=== PATIENT | male | born 1950 | race Caucasian/White ===

== ENCOUNTER 2018-11-11 09:32 | Emergency (ER) | payer OTHER ==
[~2018-11-11] VITALS: Ht 185.4 cm; Wt 122.5 kg
[2018-11-11 09:32] VITALS: BP 164/96
[~2018-11-11 09:32] MED LIST: ACETAMINOPHEN325 M1 PO; B-12500 MCG PO; BENADRYL25 MG PO; CARAFATE 1 GM TA1 G1 PO; CARVEDILOL6.25 MG PO; CLOPIDOGREL75 MG PO; COLACE 100 MG100 MG PO; COUMADIN 5 MG TA5 M1 PO; ELEMENTAL CALC600 MG PO; EPIPEN0.3 MG/0.3 IM; GOLD BOND BODY226 GM TOP; HYDROCODON-ACE1 EAC7 PO; JANTOVEN6 MG PO; LIPITOR40 MG PO; LOSARTAN POTASS50 MG PO; MULTI-DAY PLUS1 EACH PO; NORCO 5-325 TA1 EACH PO; PREDNISONE 20 M20 M1 PO; PROTONIX40 M2 PO; TAMSULOSIN HCL0.4 M1 PO; TUMS E.S.750 MG PO; TUMS PO
[2018-11-11 10:41] LABS: ABSOLUTE NEUTROPHILS 5.2 thou/uL (1.4-8.2); BASOPHILS 0.8 % (0.0-2.0); EOSINOPHILS 2.2 % (0.0-3.0); HEMATOCRIT 45.1 % (42.0-52.0); HEMOGLOBIN 15.6 gm/dL (14.0-18.0); LYMPHOCYTES 20.6 % (24.0-44.0); MCH 28.4 pg (26.0-34.0); MCHC 34.7 g/dL (28.0-37.0); MCV 81.7 fL (80.0-100.0); MONOCYTES 7.4 % (1.0-8.0); PLATELET COUNT 287 thou/uL (150-400); RBC 5.51 mil/uL (4.50-6.00); RDW 15.3 % (10.5-14.5); WBC 7.5 thou/uL (4.0-11.0)
[2018-11-11 10:50] LABS: CALCIUM 9.2 mg/dL (8.5-10.1)
[2018-11-11 10:56] LABS: ALBUMIN 3.6 g/dL (3.4-5.0); TOTAL BILIRUBIN 0.6 mg/dL (<0.1-1.0); TOTAL PROTEIN 7.5 g/dL (6.4-8.2)
[2018-11-11] MEDS ORDERED: OXYCODONE HCL20 M1 PO (11:29)
[2018-11-11 11:54] LABS: URINE BILIRUBIN NEGATIVE (Negative); URINE BLOOD 1+ (Negative); URINE CLARITY CLEAR; URINE COLOR YELLOW; URINE GLUCOSE-RANDOM* 2+ (Negative); URINE KETONES NEGATIVE (Negative); URINE LEUKOCYTES-REFLEX NEGATIVE (Negative); URINE NITRITE-REFLEX NEGATIVE (Negative); URINE PROTEIN (DIPSTICK) 1+ (Negative); URINE SPECIFIC GRAVITY 1.015 (1.005-1.035); URINE UROBILINOGEN 0.2 E.U./dl (0.2-1.0)
[2018-11-11 12:11] LABS: CASTS None Seen /LPF (None Seen); SQUAMOUS 0-3 Few /LPF (0-3)
[2018-11-11 12:12] LABS: BACTERIA-REFLEX None Seen /HPF (None Seen); CRYSTALS None Seen /LPF (None Seen); URINE RBC 0-2 Rare /HPF (0-2); URINE WBC-REFLEX 0-5 Rare /HPF (0-5)
[2018-11-11] MEDS ORDERED: COUMADIN 2 MG TA2 M1 PO (13:29)
[2018-11-11] MEDS ORDERED: GLUCOPHAGE1000 MG PO (13:33)
[2018-11-11] MEDS ORDERED: SPIRONOLACTONE25 MG PO (13:34)
[2018-11-11] MEDS ORDERED: FERROUS SULFAT325 MG PO (13:35)
[2018-11-11 13:44] LABS: INR 3.2; PROTIME 33.2 Seconds (9.3-11.4)
[2018-11-11 14:05] VITALS: BP 171/82
[2018-11-11 14:12] LABS: TSH 1.032 uIU/mL (0.358-3.740)
[2018-11-12 00:11] LABS: GLYCOHEMOGLOBIN (HGB A1C) 10.7 % (4.8-5.6)
--- NOTE | 2018-11-12 09:21 | EKG ---
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 11/12/18 0921 [id number] Connor Tucker MD, FACC /EPI
== END 2018-11-11 14:06 | disposition still patient (30) ==
LOC: ER 09:32 → EROBS 12:54
PROVIDERS: Emergency Medicine; Internal Medicine
DX: E11.622 Type 2 diabetes mellitus with other skin ulcer (principal); L97.228 Non-pressure chronic ulcer of left calf with other specified severity; I10 Essential (primary) hypertension; E11.9 Type 2 diabetes mellitus without complications; E66.9 Obesity, unspecified; G47.30 Sleep apnea, unspecified; E11.40 Type 2 diabetes mellitus with diabetic neuropathy, unspecified; Z68.35 Body mass index [BMI] 35.0-35.9, adult; Z77.22 Contact with and (suspected) exposure to environmental tobacco smoke (acute) (chronic); Z88.0 Allergy status to penicillin; Z88.6 Allergy status to analgesic agent; Z88.8 Allergy status to other drugs, medicaments and biological substances; Z95.5 Presence of coronary angioplasty implant and graft

== ENCOUNTER → 2018-11-18 | Outpatient (CLI) | payer OTHER ==
[~2018-11-18] MED LIST changes: +COUMADIN 2 MG TA2 M1 PO; +FERROUS SULFAT325 MG PO; +GLUCOPHAGE1000 MG PO; +OXYCODONE HCL20 M1 PO; +SPIRONOLACTONE25 MG PO
== END ==
LOC: HYPER 11-11 13:56
DX: E11.622 Type 2 diabetes mellitus with other skin ulcer (principal); I87.312 Chronic venous hypertension (idiopathic) with ulcer of left lower extremity; L97.822 Non-pressure chronic ulcer of other part of left lower leg with fat layer exposed; E11.40 Type 2 diabetes mellitus with diabetic neuropathy, unspecified; E66.01 Morbid (severe) obesity due to excess calories; G47.30 Sleep apnea, unspecified; I10 Essential (primary) hypertension; F17.200 Nicotine dependence, unspecified, uncomplicated; Z95.5 Presence of coronary angioplasty implant and graft; Z68.34 Body mass index [BMI] 34.0-34.9, adult; Z79.01 Long term (current) use of anticoagulants; Z79.84 Long term (current) use of oral hypoglycemic drugs

== ENCOUNTER → 2018-11-24 | Outpatient (CLI) | payer OTHER | LOC: HYPER 07:24 | DX: E11.622 Type 2 diabetes mellitus with other skin ulcer (principal); L97.822 Non-pressure chronic ulcer of other part of left lower leg with fat layer exposed; E11.40 Type 2 diabetes mellitus with diabetic neuropathy, unspecified; E66.01 Morbid (severe) obesity due to excess calories; I87.2 Venous insufficiency (chronic) (peripheral); I10 Essential (primary) hypertension; G47.30 Sleep apnea, unspecified; F17.200 Nicotine dependence, unspecified, uncomplicated; Z79.01 Long term (current) use of anticoagulants; Z79.84 Long term (current) use of oral hypoglycemic drugs ==

== ENCOUNTER 2018-11-30 14:41 | Inpatient (IN) | payer OTHER ==
[2018-11-30] VITALS (7 sets, daily range): BP systolic 117–151; BP diastolic 53–84
[~2018-11-30] VITALS: Ht 188 cm; Wt 127.5 kg
[2018-11-30] MEDS ORDERED: NEURONTIN600 MG PO (16:07)
[2018-11-30 16:13] LABS: ABSOLUTE NEUTROPHILS 3.8 thou/uL (1.4-8.2); BASOPHILS 0.4 % (0.0-2.0); EOSINOPHILS 2.9 % (0.0-3.0); HEMATOCRIT 40.4 % (42.0-52.0); HEMOGLOBIN 13.9 gm/dL (14.0-18.0); LYMPHOCYTES 24.2 % (24.0-44.0); MCHC 34.4 g/dL (28.0-37.0); MCV 84.1 fL (80.0-100.0); MONOCYTES 7.5 % (1.0-8.0); PLATELET COUNT 203 thou/uL (150-400); RDW 16.8 % (10.5-14.5); WBC 5.8 thou/uL (4.0-11.0)
[2018-11-30 16:21] LABS: CALCIUM 9.2 mg/dL (8.5-10.1); POTASSIUM 4.3 mmol/L (3.5-5.1)
[2018-11-30 16:31] LABS: INR 3.7; PROTIME 38.7 Seconds (9.3-11.4)
--- NOTE | 2018-11-30 19:08 | NUR ---
1830 - PT TO BED 237 - VSS - DR. CASILLAS UPDATED ON PT ARRIVAL
[2018-12-01] VITALS (8 sets, daily range): BP systolic 100–136; BP diastolic 52–80
[2018-12-01 04:31] LABS: CREATININE 0.9 mg/dL (0.7-1.3); MAGNESIUM 1.4 mg/dL (1.8-2.4); POTASSIUM 4.6 mmol/L (3.5-5.1)
[2018-12-01 04:33] LABS: INR 2.5; PROTIME 26.3 Seconds (9.3-11.4)
[2018-12-01 04:36] LABS: HEMOGLOBIN 13.2 gm/dL (14.0-18.0); MCH 28.6 pg (26.0-34.0); MCHC 33.9 g/dL (28.0-37.0); MCV 84.2 fL (80.0-100.0); RBC 4.63 mil/uL (4.50-6.00); RDW 16.6 % (10.5-14.5)
--- NOTE | 2018-12-01 13:10 | NUR ---
WOUND CONSULT; ROUNDING WITH DR PETR GUPTA. ASSESSMENT TO THE LEFT LE; CALF WOUND HAS 50% FIBRNOUS NON VIABLE TISSUE. THE PATIENT HAS HAD ONE DOSE OF VANCOMYCIN AND WILL RECIEVE ANOTHER BEFOR DISCHARGE. NO OTHER CONCERNS. RECOMMENDATION; COVER THE WOUND WITH XEROFORM ABD AND SIMPLE COMPRESSION WITH TREASURE WRAP FIGURE 8 PATERN BASE OF TOES TO ABOVE THE CALF DAILY/PRN. DISCUSSED WITH REYES
--- NOTE | 2018-12-01 13:20 | NUR ---
INITIAL ASSESSMENT: Received consult for discharge planning. PETE reviewed chart and spoke with nursing and attending physician. Pt was admitted from home due to LLE wound. Pt normally sees Dr. Chow at [facility] for wound care. PETE met with pt and sister at bedside. Introduced role of SW. Pt is alert/orientated x 4. Pt reports he lives at home alone. Prior to admission, pt was not using any DME. Pt currently has HH services provided by [facility]. Pt's PCP is Dr. Kalpesh Rodriguez in [place]. Pt states his plan is to return home and resume HH services. PETE faxed clinical info to [facility] and spoke with Chrissy in intake to notify of pt's hospitalization. Chrissy confirms they will resume HH services when pt is discharged. PETE is following to assist as needed with discharge planning.
--- NOTE | 2018-12-01 14:49 | NUR ---
Pt admitted for LLE diabetic ulcer. Seen for nutritional risk related to wound. Past hx of type II DM, gastric bypass. Pertinant medications include ferrous sulfate, lispro, diuretics. BG 175-188, A1c 10.7. BMI of 37. Pt ate 100% of breakfast and lunch today. Will order Eric BID to promote wound healing. Pt was sleeping, will f/u 12/02/18 to obtain wt and appetite hx, education needs. Considered low risk at this time.
--- NOTE | 2018-12-01 17:24 | NUR ---
RECEIVED PT FROM ICU. PT ALERT/ORIENTED X4. REPORTS DECREASED PAIN AFTER OXYCODONE RATED 7/10 NOW. LEFT LEG WRAPPED, CDI. ORIENTED PT TO ROOM AND SETTLED IN WITH DINNER. WILL CONTINUE WITH CURRENT CARE.
--- NOTE | 2018-12-02 03:21 | NUR ---
Patient remains A&Ox4; Swallows meds whole w/o difficulty. Remains cont. B*B. Ambulates independently w/ steady gait. Blood sugars WNL. Remains on IVABT/Ulcer to LLE; no adverse reactions noted. SL noted to L hand; infused ABT/flushed w/o difficulty. DRSG to LLE remains C/D/I, at this time. Patient remains on coumadin therapy; no s/s of bleeding noted. Last BM 11/30/18, per patient/report. Patient remains non - compliant w/ elevating BLEs. Patient has no c/o pain or discomfort. No s/s of acute distress noted. Patient up to recliner chair w/ Call light/desired belongings within reach. PO fluids encouraged. Will continue to monitor.
[2018-12-02 05:49] LABS: HEMATOCRIT 40.5 % (42.0-52.0); MCH 27.2 pg (26.0-34.0); MCV 84.7 fL (80.0-100.0); RBC 4.78 mil/uL (4.50-6.00); RDW 16.9 % (10.5-14.5); WBC 5.5 thou/uL (4.0-11.0)
[2018-12-02 05:59] LABS: CALCIUM 8.6 mg/dL (8.5-10.1); CREATININE 1.1 mg/dL (0.7-1.3); MAGNESIUM 1.4 mg/dL (1.8-2.4); POTASSIUM 3.7 mmol/L (3.5-5.1)
[2018-12-02 06:05] LABS: INR 1.7
[2018-12-02 08:16] VITALS: BP 131/71
--- NOTE | 2018-12-02 10:29 | NUR ---
SW reviewed chart and spoke with nursing. Pt was transferred to [facility] from ICU. Pt remains on IV abx and IV lasix. Plan is for pt to discharge home and resume HH services with [facility] when medically stable. PETE is following to assist as needed with discharge planning.
[2018-12-02 13:25] VITALS: BP 131/71
[2018-12-02 17:14] VITALS: BP 127/63
--- NOTE | 2018-12-02 17:18 | NUR ---
WOUND FOLLOW UP: PT. WAS SEEN TODAY BY DR. BUCK AND MYSELF. PT. WOUND IS CLINICALLY BETTER TODAY. RECOMMENDATIONS: CONTINUE WITH CURRENT PLAN OF CARE. PT. AND STAFF NURSE WERE INSTRUCTED ON PLAN OF CARE.
--- NOTE | 2018-12-02 19:58 | NUR ---
ASSUMED CARE OF PATIENT AT 0715, PATIENT ALERT AND ORIENTED X 4. PATIENT UP AD BLANCA IN HIS ROOM. PATIENT HAS WOUNDS TO LEFT LOWER LEG. WOUND CARE DONE BY THIS RN. PHYSICAL THERAPY DID TREATMENT TO LEFT LEG. PATIENT C/O PAIN WITH BILATERAL LEGS/FEET. FENTANYL IV AND OXYCODONE GIVEN X 2 THIS SHIFT. PATIENT HAS LEFT FOREARM IV IN PLACE, RECEIVED IV ANTIBIOTIC, AND 1 TIME DOSE OF MAGNESIUM IVPB THIS SHIFT. LABS IN AM. WILL CONTINUE TO MONITOR.
[2018-12-02 22:10] VITALS: BP 114/60
--- NOTE | 2018-12-03 05:55 | NUR ---
Pt A/OX4,VSS. Up ad rafaela without any problems.Pleasant mood. Dsg in place on LLE,edema noted on BLE states it's been on going encouraged to keep BLE elevated since pt spends a lot of time on the chair. C/o pain to BLE/feet 04/14 medicated with Oxycodone 20mg with partial relief reported. Miralax given at HS per request no BM yet but passing flatus. Requested for coffee to facilitate BM 2 cups of coffee given.Resting quietly at this time on the chair with feet elevated. Call light/personal items within reach. Will continue to monitor pt.
[2018-12-03 07:01] LABS: HEMATOCRIT 40.8 % (42.0-52.0); HEMOGLOBIN 13.4 gm/dL (14.0-18.0); MCH 28.1 pg (26.0-34.0); MCHC 32.9 g/dL (28.0-37.0); MCV 85.3 fL (80.0-100.0); RBC 4.79 mil/uL (4.50-6.00); RDW 17.2 % (10.5-14.5); WBC 5.1 thou/uL (4.0-11.0)
[2018-12-03 07:05] LABS: CALCIUM 8.8 mg/dL (8.5-10.1); CREATININE 1.1 mg/dL (0.7-1.3); INR 1.7; MAGNESIUM 1.4 mg/dL (1.8-2.4); POTASSIUM 3.7 mmol/L (3.5-5.1); PROTIME 18.1 Seconds (9.3-11.4)
[2018-12-03 07:39] VITALS: BP 119/64
[2018-12-03 10:04] VITALS: BP 119/64
--- NOTE | 2018-12-03 10:16 | HC ---
[facility] [place] [address] CONSULTATION Name: EMANUEL SHAW Room #: 226-P ADM IN M.R.#: [id number] Admission: 11/30/18 ������������������ Attend Phys: Tello Alatorre MD Discharge: ������������������ Date of : 52 Report #: [id number] THIS REPORT FOR: //name// CC: Tello WISE PCP DATE OF SERVICE: 12/01/2018 CHIEF COMPLAINT: Venous type ulceration, left lower extremity. HISTORY OF PRESENT ILLNESS: This is a 67-year-old male patient with whom I am familiar from previous evaluation in the Wound Care Clinic. He was presented to the Emergency Department with increasing pain, drainage and odor from his left leg. He was admitted to the hospital and started empirically on antibiotic therapy. I have been asked to see him with regard to wound care. The patient does complain of pain and drainage from his wound. The patient has had some noncompliance with dressings and home health has been ordered. ALLERGIES: Include PENICILLIN, ASPIRIN, and LOSARTAN. MEDICATIONS: Include Lipitor, Coreg, fentanyl, ferrous sulfate, Lasix, gabapentin, glucagon, glucose, oxycodone, Protonix, tamsulosin, vancomycin and Coumadin. PAST MEDICAL HISTORY: Significant for previous bariatric surgery; hypertension; diabetes mellitus; obesity; sleep apnea; lower extremity DVT, status post placement of IVC filter; aortic aneurysm; neuropathy. SOCIAL HISTORY: Positive for current smoking cigarettes. Denies alcohol use. FAMILY HISTORY: Noncontributory. REVIEW OF SYSTEMS: CONSTITUTIONAL: The patient denies fever, chills or weight loss. NEUROLOGICAL: The patient denies focal weakness, numbness, tingling. EYES: The patient denies visual changes, redness or drainage. ENT: The patient denies earache, nasal drainage, sore throat. CARDIOVASCULAR: The patient denies chest pain, palpitation or diaphoresis. PULMONARY: The patient denies cough or shortness of breath. GASTROINTESTINAL: The patient denies nausea, vomiting or abdominal pain. ORTHOPEDIC: The patient does complain of pain, swelling and drainage from his left lower extremity. Other systems in a 14-point review of systems are negative. PHYSICAL EXAMINATION: VITAL SIGNS: At this time include temperature 98.1, pulse 90, respiration 16, [address] [address] CONSULTATION Name: EMANUEL SHAW DAR Room #: 226-[facility] IN M.R.#: [id number] Admission: 11/30/18 ������������������ Attend Phys: Tello Alatorre MD Discharge: ������������������ Date of : 52 Report #: [id number] blood pressure 101/54. GENERAL: This is a chronically ill-appearing male patient who appears to be in minimal distress. HEENT: Head normocephalic. Nose and throat are clear. NECK: Supple. LUNGS: Clear. HEART: S1 and S2. ABDOMEN: Soft. Bowel sounds present. EXTREMITIES: Demonstrate a large venous type ulceration to the left posterior lateral lower leg. There is moderate drainage with some odor. Moderate fibrin and some yellow material present on the surface. There is significant venous stasis dermatitis bilaterally, greater on the left than on the right. Pulses are palpable. NEUROLOGIC: The patient is alert, oriented and appropriate. LABORATORY DATA: Includes sodium 138, potassium 4.3, chloride 101, CO2 28, BUN 15, creatinine 1.0. Glucose 183. INR is 1.7. White blood cell count is 5.5 with hemoglobin of 13.0. CLINICAL IMPRESSION: 1. Venous ulceration of the left lower extremity. 2. Wound infection. 3. Volume overload. 4. Venous stasis dermatitis. 5. Diabetes mellitus. 6. Obesity. RECOMMENDATIONS: At this point in time, we recommend empiric antibiotic therapy. Culture and sensitivity have been obtained. We will adjust antibiotic therapy pending culture and sensitivity results. Recommend elevation of the lower extremities, diuresis, empiric antibiotic therapy. Continue current medications. We will dress him with Xeroform gauze and a multilayer compression bandage to control edema. I appreciate being asked to see him in consultation. ��������������������������������������������� <ELECTRONICALLY SIGNED> ���������������������������������������� By: Jose Martin Pinzon MD ��������������������������������������������� 12/03/18 1016 [id number] Jose Martin Pinzon MD /nt
--- NOTE | 2018-12-03 10:30 | NUR ---
DISCHARGE NOTE: SW reviewed chart and spoke with nursing. Discharge home is anticipated later today following wound care visit. SW met with pt at bedside to discuss discharge plan. Pt is agreeable with resuming HH services with [facility]. Pt states he will be driving himself home. Final discharge orders and summary will need to be faxed to [facility] when available. Contact info for [facility] placed in pt's discharge summary. No additional SW needs identified at this time, but is available to assist should needs arise.
--- NOTE | 2018-12-03 14:54 | NUR ---
ASSUMED CARE OF PATIENT AT 0715, PATIENT ALERT AND ORIENTED X 4, PATIENT UP AD BLANCA. PATIENT C/O PAIN WITH BILATERAL LEGS/FEET. PATIENT RECEIVED OXYCODONE 20 MG X 1 THIS SHIFT. WOUND CARE DONE TO LEFT LEG, PER WOUND TEAM/HUGO. WOUND CARE RELEASED PATIENT FOR DISCHARGE. JUST SPOKE WITH DR GONZALEZ WHO WAS UNAWARE PATIENT WAS DISCHARGING. PATIENT VERY UPSET AND READY TO GO HOME. DR De Leon WILL DISCHARGE PATIENT. WILL REMOVE LEFT FOEARM IV PRIOR TO DISCHARGE. WILL CONTINUE TO MONITOR.
== END 2018-12-03 16:03 | disposition home health service (06) | DRG 853 ==
LOC: ER 14:41 → ICU 16:59 → EROBS 16:59 → ICU 18:32 → ENTRNSPT 12-01 16:10 → SICU 12-01 16:29
PROVIDERS: Nurse Practitioner Family; ADMIT Internal Medicine
PROC: 0KDT0ZZ Extraction of Left Lower Leg Muscle, Open Approach (ICD-10-PCS; principal; 2018-11-30)
DX: A41.9 Sepsis, unspecified organism (principal); E43 Unspecified severe protein-calorie malnutrition; L97.829 Non-pressure chronic ulcer of other part of left lower leg with unspecified severity; E66.9 Obesity, unspecified; E11.40 Type 2 diabetes mellitus with diabetic neuropathy, unspecified; L08.9 Local infection of the skin and subcutaneous tissue, unspecified; F17.210 Nicotine dependence, cigarettes, uncomplicated; E87.70 Fluid overload, unspecified; I11.0 Hypertensive heart disease with heart failure; I87.2 Venous insufficiency (chronic) (peripheral); I50.9 Heart failure, unspecified; N40.0 Benign prostatic hyperplasia without lower urinary tract symptoms; E11.65 Type 2 diabetes mellitus with hyperglycemia; Z98.84 Bariatric surgery status; Z68.36 Body mass index [BMI] 36.0-36.9, adult; Z88.6 Allergy status to analgesic agent; Z88.0 Allergy status to penicillin; Z88.8 Allergy status to other drugs, medicaments and biological substances; Z86.718 Personal history of other venous thrombosis and embolism; Z95.828 Presence of other vascular implants and grafts
CPT/HCPCS: 10196; 15002

== ENCOUNTER → 2018-12-10 | Outpatient (CLI) | payer OTHER ==
[~2018-12-10] MED LIST changes: +NEURONTIN600 MG PO
== END ==
LOC: HYPER 12-02 15:18
DX: E11.622 Type 2 diabetes mellitus with other skin ulcer (principal); L97.822 Non-pressure chronic ulcer of other part of left lower leg with fat layer exposed; E11.40 Type 2 diabetes mellitus with diabetic neuropathy, unspecified; E66.01 Morbid (severe) obesity due to excess calories; G47.30 Sleep apnea, unspecified; I87.2 Venous insufficiency (chronic) (peripheral); I10 Essential (primary) hypertension; F17.200 Nicotine dependence, unspecified, uncomplicated; Z79.01 Long term (current) use of anticoagulants; Z79.84 Long term (current) use of oral hypoglycemic drugs; Z68.34 Body mass index [BMI] 34.0-34.9, adult

== ENCOUNTER → 2018-12-17 | Outpatient (CLI) | payer OTHER | LOC: HYPER 06:58 | DX: E11.622 Type 2 diabetes mellitus with other skin ulcer (principal); L97.822 Non-pressure chronic ulcer of other part of left lower leg with fat layer exposed; I87.2 Venous insufficiency (chronic) (peripheral); E11.40 Type 2 diabetes mellitus with diabetic neuropathy, unspecified; E66.01 Morbid (severe) obesity due to excess calories; I10 Essential (primary) hypertension; G47.30 Sleep apnea, unspecified; F17.200 Nicotine dependence, unspecified, uncomplicated; Z79.01 Long term (current) use of anticoagulants; Z79.84 Long term (current) use of oral hypoglycemic drugs; Z68.34 Body mass index [BMI] 34.0-34.9, adult ==

== ENCOUNTER → 2018-12-24 | Outpatient (CLI) | payer OTHER | LOC: HYPER 06:57 | DX: E11.622 Type 2 diabetes mellitus with other skin ulcer (principal); L97.822 Non-pressure chronic ulcer of other part of left lower leg with fat layer exposed; E11.40 Type 2 diabetes mellitus with diabetic neuropathy, unspecified; E66.01 Morbid (severe) obesity due to excess calories; E66.9 Obesity, unspecified; G47.30 Sleep apnea, unspecified; I87.2 Venous insufficiency (chronic) (peripheral); I10 Essential (primary) hypertension; F17.200 Nicotine dependence, unspecified, uncomplicated; Z79.01 Long term (current) use of anticoagulants; Z79.84 Long term (current) use of oral hypoglycemic drugs ==

== ENCOUNTER → 2018-12-31 | Outpatient (CLI) | payer OTHER | LOC: HYPER 06:49 | DX: E11.622 Type 2 diabetes mellitus with other skin ulcer (principal); L97.822 Non-pressure chronic ulcer of other part of left lower leg with fat layer exposed; E66.01 Morbid (severe) obesity due to excess calories; E11.40 Type 2 diabetes mellitus with diabetic neuropathy, unspecified; G47.30 Sleep apnea, unspecified; I87.2 Venous insufficiency (chronic) (peripheral); I10 Essential (primary) hypertension; F17.200 Nicotine dependence, unspecified, uncomplicated; Z79.01 Long term (current) use of anticoagulants; Z79.84 Long term (current) use of oral hypoglycemic drugs; Z68.34 Body mass index [BMI] 34.0-34.9, adult ==

== ENCOUNTER → 2019-01-07 | Outpatient (CLI) | payer OTHER | LOC: HYPER 07:03 | DX: E11.622 Type 2 diabetes mellitus with other skin ulcer (principal); L97.822 Non-pressure chronic ulcer of other part of left lower leg with fat layer exposed; I87.2 Venous insufficiency (chronic) (peripheral); E11.40 Type 2 diabetes mellitus with diabetic neuropathy, unspecified; E66.01 Morbid (severe) obesity due to excess calories; I10 Essential (primary) hypertension; R60.0 Localized edema; G47.30 Sleep apnea, unspecified; F17.200 Nicotine dependence, unspecified, uncomplicated; Z79.01 Long term (current) use of anticoagulants; Z79.84 Long term (current) use of oral hypoglycemic drugs; Z68.34 Body mass index [BMI] 34.0-34.9, adult ==

== ENCOUNTER → 2019-01-14 | Outpatient (CLI) | payer OTHER | LOC: HYPER 06:38 | DX: E11.622 Type 2 diabetes mellitus with other skin ulcer (principal); L97.822 Non-pressure chronic ulcer of other part of left lower leg with fat layer exposed; L97.811 Non-pressure chronic ulcer of other part of right lower leg limited to breakdown of skin; E11.40 Type 2 diabetes mellitus with diabetic neuropathy, unspecified; E66.01 Morbid (severe) obesity due to excess calories; G47.30 Sleep apnea, unspecified; I87.2 Venous insufficiency (chronic) (peripheral); I10 Essential (primary) hypertension; R60.0 Localized edema; F17.200 Nicotine dependence, unspecified, uncomplicated; Z68.34 Body mass index [BMI] 34.0-34.9, adult; Z79.01 Long term (current) use of anticoagulants; Z79.84 Long term (current) use of oral hypoglycemic drugs ==

== ENCOUNTER → 2019-01-26 | Outpatient (CLI) | payer OTHER | LOC: HYPER 01-21 06:47 | DX: E11.622 Type 2 diabetes mellitus with other skin ulcer (principal); L97.822 Non-pressure chronic ulcer of other part of left lower leg with fat layer exposed; I87.2 Venous insufficiency (chronic) (peripheral); I10 Essential (primary) hypertension; E66.01 Morbid (severe) obesity due to excess calories; R60.0 Localized edema; G47.30 Sleep apnea, unspecified; E11.40 Type 2 diabetes mellitus with diabetic neuropathy, unspecified; Z79.01 Long term (current) use of anticoagulants; Z79.84 Long term (current) use of oral hypoglycemic drugs; Z68.35 Body mass index [BMI] 35.0-35.9, adult; F17.200 Nicotine dependence, unspecified, uncomplicated ==

== ENCOUNTER → 2019-02-09 | Outpatient (CLI) | payer OTHER | LOC: HYPER 06:38 | DX: E11.622 Type 2 diabetes mellitus with other skin ulcer (principal); L97.822 Non-pressure chronic ulcer of other part of left lower leg with fat layer exposed; E66.01 Morbid (severe) obesity due to excess calories; I87.2 Venous insufficiency (chronic) (peripheral); E11.40 Type 2 diabetes mellitus with diabetic neuropathy, unspecified; I10 Essential (primary) hypertension; E11.59 Type 2 diabetes mellitus with other circulatory complications; G47.30 Sleep apnea, unspecified; F17.200 Nicotine dependence, unspecified, uncomplicated; Z79.01 Long term (current) use of anticoagulants; Z68.35 Body mass index [BMI] 35.0-35.9, adult; Z79.84 Long term (current) use of oral hypoglycemic drugs ==

== ENCOUNTER → 2019-03-08 | Outpatient (CLI) | payer OTHER | LOC: HYPER 02-18 11:28 | DX: E11.622 Type 2 diabetes mellitus with other skin ulcer (principal); L97.822 Non-pressure chronic ulcer of other part of left lower leg with fat layer exposed; I87.2 Venous insufficiency (chronic) (peripheral); E11.40 Type 2 diabetes mellitus with diabetic neuropathy, unspecified; E11.59 Type 2 diabetes mellitus with other circulatory complications; E66.01 Morbid (severe) obesity due to excess calories; R60.0 Localized edema; G47.30 Sleep apnea, unspecified; I10 Essential (primary) hypertension; F17.200 Nicotine dependence, unspecified, uncomplicated; Z68.34 Body mass index [BMI] 34.0-34.9, adult; Z79.01 Long term (current) use of anticoagulants; Z79.84 Long term (current) use of oral hypoglycemic drugs ==

== ENCOUNTER 2021-07-01 02:13 | Emergency (ER) | payer OTHER ==
[~2021-07-01] VITALS: Ht 188 cm; Wt 111.1 kg
[2021-07-01 03:27] LABS: ABSOLUTE NEUTROPHILS 8.3 thou/uL (1.4-8.2); BASOPHILS 0.7 % (0.0-2.0); EOSINOPHILS 2.9 % (0.0-3.0); HEMATOCRIT 35.5 % (42.0-52.0); HEMOGLOBIN 12.1 gm/dL (14.0-18.0); LYMPHOCYTES 9.3 % (24.0-44.0); MCH 28.6 pg (26.0-34.0); MCV 84.1 fL (80.0-100.0); MONOCYTES 9.9 % (1.0-8.0); PLATELET COUNT 255 thou/uL (150-400); POLYS 77.2 % (36.0-66.0); RBC 4.23 mil/uL (4.50-6.00); RDW 14.8 % (10.5-14.5); WBC 10.8 thou/uL (4.0-11.0)
[2021-07-01 03:33] LABS: CREATININE 3.2 mg/dL (0.7-1.3); POTASSIUM 3.2 mmol/L (3.5-5.1)
[2021-07-01 03:34] LABS: CALCIUM 5.1 mg/dL (8.5-10.1)
[2021-07-01 04:10] LABS: APTT > 139.0 Seconds (24.5-32.8)
[2021-07-01 05:03] LABS: APTT > 139.0 Seconds (24.5-32.8)
[2021-07-01 08:58] VITALS: BP 103/73
== END 2021-07-01 09:00 | disposition short-term general hospital (02) ==
LOC: ER 02:13
PROVIDERS: Emergency Medicine
DX: E83.51 Hypocalcemia (principal); F17.210 Nicotine dependence, cigarettes, uncomplicated; Z88.6 Allergy status to analgesic agent; Z88.0 Allergy status to penicillin; Z88.8 Allergy status to other drugs, medicaments and biological substances; Z20.822 Contact with and (suspected) exposure to COVID-19